=== PATIENT | female | born 1960 | race Caucasian/White ===

== ENCOUNTER 2017-09-18 07:52 | Day surgery (SDC) | payer BC ==
[~2017-09-18 07:52] MED LIST: Lactated Ringers 1,000 ML IV SCH; Lidocaine 1%/Sod Bicarbonate in NS 8.4% 1 ML Syringe IDERM PRN; Sodium Chloride 0.9% 10 ML Syringe FLUSH PRN
[2017-09-18] MEDS ORDERED: Lidocaine 1% with EPINEPHrine 1:100,000 20 ML MDV ONE (07:59)
[2017-09-18] MEDS ORDERED: Bupivacaine 0.5% 30 ML SDV ONE (07:59)
[2017-09-18] MEDS ORDERED: Sodium Chloride 0.9% 50 ML SDV ONE (08:30)
[2017-09-18] MEDS ORDERED: Scopolamine 1.5 MG Transdermal Patch TOP ONE (08:37)
[2017-09-18] MEDS ORDERED: Ondansetron 4 MG/2 ML SDV ONE (08:46)
[2017-09-18] MEDS ORDERED: ceFAZolin 1 GM Vial ONE (08:46)
[2017-09-18] MEDS ORDERED: Lactated Ringers 2,000 ML ONE (08:46)
[2017-09-18] MEDS ORDERED: Rocuronium 50 MG/5 ML Vial ONE ×2 (08:46→09:55)
[2017-09-18] MEDS ORDERED: Dexamethasone 4 MG/ML SDV ONE (08:46)
[2017-09-18] MEDS ORDERED: Propofol 200 MG/20 ML SDV ONE ×3 (08:46→10:01)
[2017-09-18] MEDS ORDERED: Midazolam 1 MG/ML 2 ML SDV ONE (08:47)
[2017-09-18] MEDS ORDERED: fentaNYL 250 MCG/5 ML SDV ONE (08:47)
[2017-09-18] MEDS ORDERED: Lidocaine 1% 4 ML ONE (08:47)
[2017-09-18] MEDS ORDERED: Ketamine 500 mg/10 ML MDV ONE (08:50)
[2017-09-18] MEDS ORDERED: Famotidine 20 MG/2 ML SDV ONE (08:53)
--- NOTE | 2017-09-18 09:11 | PCM.PREANE ---
Preanesthetic Assessment - Anesthesia/Transfusion/Family Hx Anesthesia History: Prior Anesthesia Reaction Type of Anesthesia Reaction: Excessive Nausea/Vomiting Family History of Anesthesia Reaction: No - Review of Systems General: No Symptoms Pulmonary: No Symptoms Cardiovascular: Chest Pain (History of Chest Pain. None for one year. EKG done and Normal this morning. ) Gastrointestinal: No Symptoms Neurological: Numbness (In her arms at times. Usually if she has fallen asleep in an ackward position. ) Other: Reports: Depression - Physical Assessment NPO Status Date: 09/18/17 NPO Status Time: 06:00 O2 Sat by Pulse Oximetry: 94 Respiratory Rate: 18 Vital Signs: Last Vital Signs Temp 36.6 C 09/18/17 07:58 Pulse 77 09/18/17 07:58 Resp 18 09/18/17 07:58 BP 134/76 09/18/17 07:58 Pulse Ox 94 L 09/18/17 07:58 Height: 1.57 m Weight: 96.3 kg ASA Class: 2 Mental Status: Alert & Oriented x3 Airway Class: Mallampati = 1 Dentition: Reports: Normal Dentition, Caries Thyro-Mental Finger Breadths: 3 Mouth Opening Finger Breadths: 3 ROM/Head Extension: Full Lungs: Clear to Auscultation, Normal Respiratory Effort Cardiovascular: Regular Rate, Regular Rhythm - Lab Values: Laboratory Last Values WBC 7.24 K/mm3 (3.98-10.04) 09/16/17 14:30 RBC 5.16 M/mm3 (3.98-5.22) 09/16/17 14:30 Hgb 15.1 gm/L (11.2-15.7) 09/16/17 14:30 Hct 44.8 % (34.1-44.9) 09/16/17 14:30 MCV 86.8 fl (79.4-94.8) 09/16/17 14:30 MCH 29.3 pg (25.6-32.2) 09/16/17 14:30 MCHC 33.7 g/dl (32.2-35.5) 09/16/17 14:30 RDW Std Deviation 41.1 fL (36.4-46.3) 09/16/17 14:30 Plt Count 232 K/mm3 (182-369) 09/16/17 14:30 MPV 10.3 fl (9.4-12.3) 09/16/17 14:30 Neut % (Auto) 55.2 % (34.0-71.1) 09/16/17 14:30 Lymph % (Auto) 33.0 % (19.3-51.7) 09/16/17 14:30 [place] % (Auto) 7.9 % (4.7-12.5) 09/16/17 14:30 Eos % (Auto) 3.2 (0.7-5.8) 09/16/17 14:30 Baso % (Auto) 0.6 % (0.1-1.2) 09/16/17 14:30 Neut # (Auto) 4.00 K/mm3 (1.56-6.13) 09/16/17 14:30 Lymph # (Auto) 2.39 K/mm3 (1.18-3.74) 09/16/17 14:30 [place] # (Auto) 0.57 K/mm3 (0.24-0.36) H 09/16/17 14:30 Eos # (Auto) 0.23 K/mm3 (0.04-0.36) 09/16/17 14:30 Baso # (Auto) 0.04 K/mm3 (0.01-0.08) 09/16/17 14:30 Sodium 140 mEq/L (136-145) 09/16/17 14:30 Potassium 3.9 mEq/L (3.5-5.1) 09/16/17 14:30 Chloride 103 mEq/L (98-107) 09/16/17 14:30 Carbon Dioxide 27 mEq/L (21-32) 09/16/17 14:30 Anion Gap 13.9 (5-15) 09/16/17 14:30 BUN 19 mg/dL (7-18) H 09/16/17 14:30 Creatinine 0.9 mg/dL (0.55-1.02) 09/16/17 14:30 Est Cr Clr Drug Dosing TNP 09/16/17 14:30 Estimated GFR (MDRD) > 60 mL/min (>60) 09/16/17 14:30 BUN/Creatinine Ratio 21.1 (14-18) H 09/16/17 14:30 Glucose 113 mg/dL (74-106) H 09/16/17 14:30 Calcium 9.2 mg/dL (8.5-10.1) 09/16/17 14:30 Total Bilirubin 0.6 mg/dL (0.2-1.0) 09/16/17 14:30 AST 28 U/L (15-37) 09/16/17 14:30 ALT 44 U/L (14-59) 09/16/17 14:30 Alkaline Phosphatase 67 U/L (46-116) 09/16/17 14:30 Total Protein 7.9 g/dl (6.4-8.2) 09/16/17 14:30 Albumin 4.3 g/dl (3.4-5.0) 09/16/17 14:30 Globulin 3.6 gm/dL 09/16/17 14:30 Albumin/Globulin Ratio 1.2 (1-2) 09/16/17 14:30 Urine Color Light yellow (Yellow) 09/16/17 14:30 Urine Appearance Clear (Clear) 09/16/17 14:30 Urine pH 6.0 (5.0-8.0) 09/16/17 14:30 Ur Specific [place] 1.020 (1.005-1.030) 09/16/17 14:30 Urine Protein Negative (Negative) 09/16/17 14:30 Urine Glucose (UA) Negative (Negative) 09/16/17 14:30 Urine Ketones Negative (Negative) 09/16/17 14:30 Urine Occult Blood Negative (Negative) 09/16/17 14:30 Urine Nitrite Negative (Negative) 09/16/17 14:30 Urine Bilirubin Negative (Negative) 09/16/17 14:30 Urine Urobilinogen 0.2 (0.2-1.0) 09/16/17 14:30 Ur Leukocyte Esterase Trace (Negative) H 09/16/17 14:30 Urine HCG, Qual Negative (NEGATIVE) 09/16/17 14:30 Blood Type A POSITIVE 09/16/17 14:30 Gel Antibody Screen Negative 09/16/17 14:30 - Allergies Allergies/Adverse Reactions: Allergies Allergy/AdvReac Type Severity Reaction Status Date / Time lisinopril Allergy Shortness Verified 09/18/17 08:45 of Breath - Acknowledgements Anesthesia Type Planned: General Anesthesia Pt an Appropriate Candidate for the Planned Anesthesia: Yes Alternatives and Risks of Anesthesia Discussed w Pt/Guardian: Yes Pt/Guardian Understands and Agrees with Anesthesia Plan: Yes Additional Comments: Spoke with Lo regarding her chest pain episodes. She states her primary care doctor felt a further workup was not warranted. She has not had an episode for one year. She does want to seek further testing. PreAnesthesia Questionnaire HEENT History: Reports: Allergic Rhinitis, Impaired Vision Other HEENT History: wears glasses, eyelid swelling Cardiovascular History: Reports: High Cholesterol, Hypertension Other Cardiovascular History: chest pain, edema Respiratory History: Reports: Sleep Apnea Other Respiratory History: upper respiratory infection Gastrointestinal History: Reports: Chronic Constipation Genitourinary History: Reports: STD LEHR [employer]ER History: Reports: Endometrial Ablation Other OB/BYN History: menstrual abnormality Other Musculoskeletal History: broken ankle, repaired with pins Neurological History: Reports: None Psychiatric History: Reports: Depression Endocrine/Metabolic History: Reports: Hypothyroidism, Vitamin D Deficiency Hematologic History: Reports: Anemia Other Hematologic History: vitamin D deficiency Immunologic History: Reports: None Oncologic (Cancer) History: Reports: None Dermatologic History: Reports: Other (See Below) Other Dermatologic History: herpes simplex and herpes zoster, swelling of eyelid , scalp lesion, hematoma, cellulitis, skin disorder - Past Surgical History Respiratory Surgical History: Reports: None GI Surgical History: Reports: None Female Surgical History: Reports: Section, Tubal Ligation Endocrine Surgical History: Reports: None Neurological Surgical History: Reports: None Oncologic Surgical History: Reports: None - SUBSTANCE USE Smoking Status *Q: Never Smoker Recreational Drug Use History: No - HOME MEDS Home Medications: Home Meds Cholecalciferol (Vitamin D3) [Vitamin D3] 4,000 unit PO DAILY 02/27/15 [History] DULoxetine HCl [Cymbalta] 60 mg PO DAILY 02/27/15 [History] Docusate Sodium [Colace] 100 mg PO DAILY 02/27/15 [History] Furosemide [Lasix] 20 mg PO DAILY 02/27/15 [History] Levothyroxine Sodium [Synthroid] 75 mcg PO DAILY 02/27/15 [History] Losartan Potassium 100 mg PO DAILY 02/27/15 [History] Ubidecarenone [Coq-10] 100 mg PO DAILY 02/27/15 [History] atorvaSTATin Calcium [Atorvastatin Calcium] 10 mg PO BEDTIME 02/27/15 [History] valACYclovir [Valtrex] 1,000 mg PO TID PRN 02/27/15 [History] Doxycycline Monohydrate 100 mg PO DAILY 09/17/17 [History] L Acidophil/B Lactis/B Longum [Florajen3] 460 mg PO DAILY 09/17/17 [History] Levocetirizine Dihydrochloride [Xyzal] 5 mg PO BEDTIME 09/17/17 [History] - CURRENT (IN HOUSE) MEDS Current Meds: Current Medications Lactated Ringer's (Ringers, Lactated) 1,000 mls @ 125 mls/hr IV ASDIRECTED MARCY Stop: 09/18/17 23:00 Last Admin: 09/18/17 08:25 Dose: 125 mls/hr Lidocaine/Sodium Bicarbonate (Buffered Lidocaine 1% In Ns 8.4%) 0.25 ml IDERM ONETIME PRN PRN Reason: Prior to IV Start Stop: 09/18/17 18:00 Sodium Chloride (Saline Flush) 10 ml FLUSH ASDIRECTED PRN PRN Reason: Keep Vein Open Stop: 09/18/17 18:00 Discontinued Medications Bupivacaine HCl (Marcaine 0.5%) Confirm Administered Dose 30 ml .ROUTE .STK-MED ONE Stop: 09/18/17 08:00 Cefazolin Sodium (Ancef) Confirm Administered Dose 2 gm .ROUTE .STK-MED ONE Stop: 09/18/17 08:47 Dexamethasone (Dexamethasone) Confirm Administered Dose 4 mg .ROUTE .STK-MED ONE Stop: 09/18/17 08:47 Famotidine (Pepcid) Confirm Administered Dose 20 mg .ROUTE .STK-MED ONE Stop: 09/18/17 08:54 Fentanyl (Sublimaze) Confirm Administered Dose 250 mcg .ROUTE .STK-MED ONE Stop: 09/18/17 08:48 Lactated Ringer's (Ringers, Lactated) Confirm Administered Dose 2,000 mls @ as directed .ROUTE .STK-MED ONE Stop: 09/18/17 08:47 Lidocaine HCl (Xylocaine-Mpf 1%) Confirm Administered Dose 4 mls @ as directed .ROUTE .STK-MED ONE Stop: 09/18/17 08:48 Ketamine HCl (Ketalar) Confirm Administered Dose 500 mg .ROUTE .STK-MED ONE Stop: 09/18/17 08:51 Lidocaine/Epinephrine (Xylocaine 1% With Epinephrine 1:100,000) Confirm Administered Dose 20 ml .ROUTE .STK-MED ONE Stop: 09/18/17 08:00 Midazolam HCl (Versed 1 Mg/Ml) Confirm Administered Dose 2 mg .ROUTE .STK-MED ONE Stop: 09/18/17 08:48 Ondansetron HCl (Zofran) Confirm Administered Dose 4 mg .ROUTE .STK-MED ONE Stop: 09/18/17 08:47 Propofol (Diprivan 20 Ml) Confirm Administered Dose 400 mg .ROUTE .STK-MED ONE Stop: 09/18/17 08:47 Propofol (Diprivan 20 Ml) Confirm Administered Dose 600 mg .ROUTE .STK-MED ONE Stop: 09/18/17 08:48 Rocuronium [place] (Zemuron) Confirm Administered Dose 50 mg .ROUTE .STK-MED ONE Stop: 09/18/17 08:47 Scopolamine (Transderm-Scop) 1.5 mg TOP ONETIME ONE Stop: 09/18/17 08:38 Last Admin: 09/18/17 08:45 Dose: 1.5 mg Sodium Chloride (Normal Saline) Confirm Administered Dose 50 ml .ROUTE .STK-MED ONE Stop: 09/18/17 08:31
[2017-09-18] MEDS ORDERED: Phenylephrine/Normal Saline 100 MCG/ML 10 ML Syringe ONE (09:51)
[2017-09-18] MEDS ORDERED: Neostigmine Methylsulfate 1 MG/ML 5 ML Syringe ONE (10:29)
[2017-09-18] MEDS ORDERED: HYDROmorphone 0.5 MG/0.5 ML Syringe IVPUSH PRN (10:57)
[2017-09-18] MEDS ORDERED: Acetaminophen/oxyCODONE 325-5 MG Tab PO PRN (10:57)
[2017-09-18] MEDS ORDERED: Haloperidol Lactate 5 MG/ML SDV IVPUSH PRN (10:57)
[2017-09-18] MEDS ORDERED: fentaNYL 100 MCG/2 ML SDV IVPUSH PRN (10:57)
[2017-09-18] MEDS ORDERED: Ondansetron 4 MG/2 ML SDV IVPUSH PRN (10:57)
[2017-09-18] MEDS ORDERED: diphenhydrAMINE 50 MG/ML SDV IVPUSH PRN (10:57)
--- NOTE | 2017-09-18 10:57 | PCM.POSTAN ---
POST ANESTHESIA ASSESSMENT - MENTAL STATUS Mental Status: Alert, Oriented - VITAL SIGNS Pulse Rate: 68 SaO2: 98 Resp Rate: 7 Blood Pressure: 102/56 Temperature: 36.2 C - RESPIRATORY Respiratory Status: Respiratory Rate WNL, Airway Patent, O2 Saturation Stable, Supplemental Oxygen - CARDIOVASCULAR CV Status: Pulse Rate WNL, Blood Pressure Stable - GASTROINTESTINAL GI Status: No Symptoms - PAIN Pain Score: 0 - POST OP HYDRATION Hydration Status: Adequate & Stable
--- NOTE | 2017-09-18 11:04 | PCM.OPNOTE ---
- General Post-Op/Procedure Note Date of Surgery/Procedure: 09/18/17 Operative Procedure(s): Laparoscopic-assisted vaginal hysterectomy with bilateral salpingo-oophorectomy. Findings: Uterus was small, patient has evidence of tubal ligation. Adhesions noted. Ovaries were small and normal in appearance for postmenopausal female. Pre Op Diagnosis: 1. Postmenopausal uterine bleeding Post-Op Diagnosis: Same Anesthesia Technique: General ET Tube Other Anesthesia Type: Lidocaine quarter percent with [id number] mL. Marcaine 0.5%10 mL Primary Surgeon: Ben Marrero Secondary Surgeon: Avila Block Anesthesia Provider: Christa Telles Reason Hop Picker Was Necessary: Retraction, assistance, patient safety, quality of care Role of Hop Picker: Retraction, assistance Pathology: Uterus, tubes and ovaries as one specimen Fluid Replacement, Intraop: 2,000 Output, Urine Amount: 200 EBL in mLs: 10 Drain/Tube Comments:: Indwelling catheter removed Complications: None Condition: Good Free Text/Narrative:: Surgery duration: 45 minutes The patient was taken to the operating room placed in supine position on the operating table. She received 2 g of Ancef preoperatively for infection prophylaxis. She had signed consent previously. After adequate anesthesia patient was placed in a dorsal lithotomy position. It should be noted she had sequential compression stockings in place for DVT prophylaxis. A latex free indwelling bladder catheter was placed. This was done after adequate prepping and draping. The patient was placed in supine position and four laparoscopic port sites were developed. Marcaine 0.5% approximately 3-5 mL was injected at each site. Varies needle was placed and pneumoperitoneum was achieved with 3 L of CO2. Infraumbilical, suprapubic and 2 lateral port sites were developed. Under laparoscopic guidance the upper portion of the hysterectomy was performed. The right infundibulopelvic ligament was elevated and crossclamped using the endoseal computerized cautery device. Ovaries were removed per patient desire with this technique. The round ligament was taken down to the broad ligament. At this time attention was turned to the left side and the left infundibulopelvic ligament and the triple ligament were then taken down in a similar fashion. Broad ligament was taken down to the area of the uterine vasculature. Uterine vasculature was developed in the usual fashion using the cautery system. Both uterine arteries were identified and developed. Vaginal approach was then undertaken. The patient was placed in the dorsal lithotomy position and a weighted speculum was placed in the vagina. The cervix was injected with lidocaine quarter percent with epinephrine 20 mL total. A full circumference incision was made through the epithelium around the cervix. Posterior cul-de-sac was entered without problems. The left uterosacral ligament and then the right uterosacral were taken down using the Enseal vessel closure system. The cardinal ligament and what remained of the uterine vascular vessels and cervical branches of the vessels were managed with the Enseal vessel closure system on each side. Anterior cul-de-sac was then entered and the remaining portion of broad ligament on the right side and a small portion of broad ligament remaining on the left side were then developed in the usual fashion. Uterus was then removed. At this point the uterus was completely removed and sent as specimen. The vagina was closed with a running locked suture of 0 Monocryl. Hemostasis was confirmed this time and no bleeding was noted. Laparoscopy was then performed to ensure hemostasis. Pneumoperitoneum was reestablished and the laparoscope was placed. The pelvis was found to be hemostatically intact. There was no evidence of any bowel adhesion to the vaginal cuff area noted. The sleeves were removed under direct visualization and the upper sleeve was removed after reversal of the pneumoperitoneum. Each of these sites were closed with a single interrupted suture of 3-0 Monocryl. They were further approximated with Dermabond skin glue. At this point the patient was awakened from general endotracheal anesthesia. The Sen catheter had been removed by this time. She is discharged from the operating room in good condition.
--- NOTE | 2017-09-18 11:42 | PCM48HPAN ---
Post Anesthesia Note - EVALUATION WITHIN 48HRS OF ANESTHETIC Vital Signs in Normal Range: Yes Patient Participated in Evaluation: Yes Respiratory Function Stable: Yes Airway Patent: Yes Cardiovascular Function Stable: Yes Hydration Status Stable: Yes Pain Control Satisfactory: Yes Nausea and Vomiting Control Satisfactory: Yes Mental Status Recovered: Yes
[2017-09-18] MEDS ORDERED: Ketorolac 30 MG/ML SDV IVPUSH ONE (12:00)
[2017-09-18 14:34] VITALS: BP 120/70
== END 2017-09-18 14:20 | disposition home or self-care (01) ==
LOC: JD.SDS 07:52
PROVIDERS: ATTEND Obstetrics & Gynecology
DX: N80.0 Endometriosis of uterus (principal); N88.8 Other specified noninflammatory disorders of cervix uteri; N83.312 Acquired atrophy of left ovary; N83.292 Other ovarian cyst, left side; N83.291 Other ovarian cyst, right side; N73.6 Female pelvic peritoneal adhesions (postinfective); I10 Essential (primary) hypertension; E78.5 Hyperlipidemia, unspecified; E03.9 Hypothyroidism, unspecified; F32.9 Major depressive disorder, single episode, unspecified; G47.33 Obstructive sleep apnea (adult) (pediatric); E55.9 Vitamin D deficiency, unspecified; Z88.8 Allergy status to other drugs, medicaments and biological substances; Z79.899 Other long term (current) drug therapy
CPT/HCPCS: 36415; 58552; 80053; 81003; 81025; 85025; 86850; 86900; 86901; 93005; A9270; J0690; J1100; J1885; J2001; J2250; J2405; J2710; J3010; J7120; 00944; J2704

== ENCOUNTER 2019-01-27 20:38 | Emergency (ER) | payer BC ==
[2019-01-27 20:43] VITALS: BP 144/95; PULSE 82
[2019-01-27] MEDS ORDERED: Sodium Chloride 0.9% 10 ML Syringe FLUSH PRN (20:49)
[2019-01-27] MEDS ORDERED: Aspirin 81 MG Tab.Chew PO ONE (20:49)
--- NOTE | 2019-01-27 21:08 | EDM.PDOC ---
ED HPI GENERAL MEDICAL PROBLEM - General Chief Complaint: Chest Pain Stated Complaint: [facility] Time Seen by Provider: 01/27/19 20:45 Source of Information: Reports: Patient History Limitations: Reports: No Limitations - History of Present Illness INITIAL COMMENTS - FREE TEXT/NARRATIVE: The patient presents by [facility] for a nonSTEMI and chest pain. She said the pressure started today with some nausea. The pain was no that bad. She went to [facility] and her EKG looked good. Labs were sent off and her troponin was elevated at 0.329. Gisela Beck NP at the [facility] called the patient and myself. An ambulance was called to bring her in. She came in by [facility]. She is pain free now. Her BP was a little high in the clinic. She has no history of heart attack. She does have a history of hypertension and hypercholesterolemia for which she is taking medications. She does not smoke. She does have a family history of heart disease. She has no history of PE or DVT. She has no fever, chills, cough, congestion, shortness of breath, abdominal pain or vomiting. Onset: Gradual Duration: Hour(s): Location: Reports: Chest Quality: Reports: Pressure Severity: Mild (Gone now) Improves with: Reports: None Worsens with: Reports: None Associated Symptoms: Reports: Chest Pain. Denies: Cough, Fever/Chills, Headaches, Nausea/Vomiting, Shortness of Breath Treatments WELFARE ANALYST: Reports: IV/IO, Other (see below) Other Treatments WELFARE ANALYST: dilaudid and saline - Related Data Allergies Allergy/AdvReac Type Severity Reaction Status Date / Time lisinopril Allergy Shortness Verified 01/27/19 20:43 of Breath Home Meds: Home Meds DULoxetine HCl [Cymbalta] 60 mg PO DAILY 02/27/15 [History] Levothyroxine Sodium [Synthroid] 75 mcg PO DAILY 02/27/15 [History] Losartan Potassium 100 mg PO DAILY 02/27/15 [History] Ubidecarenone [Coq-10] 100 mg PO DAILY 02/27/15 [History] atorvaSTATin Calcium [Atorvastatin Calcium] 10 mg PO BEDTIME 02/27/15 [History] L Acidophil/B Lactis/B Longum [Florajen3] 460 mg PO DAILY 09/17/17 [History] Ibuprofen 600 mg PO Q4H PRN #30 tablet 09/18/17 [Rx] Past Medical History HEENT History: Reports: Allergic Rhinitis, Impaired Vision Other HEENT History: wears glasses, eyelid swelling Cardiovascular History: Reports: High Cholesterol, Hypertension Other Cardiovascular History: chest pain, edema Respiratory History: Reports: Sleep Apnea Other Respiratory History: upper respiratory infection Gastrointestinal History: Reports: Chronic Constipation Genitourinary History: Reports: STD FIELD ASSOCIATE History: Reports: Endometrial Ablation Other FIELD ASSOCIATE History: menstrual abnormality Other Musculoskeletal History: broken ankle, repaired with pins Neurological History: Reports: None Psychiatric History: Reports: Depression Endocrine/Metabolic History: Reports: Hypothyroidism, Vitamin D Deficiency Hematologic History: Reports: Anemia Other Hematologic History: vitamin D deficiency Immunologic History: Reports: None Oncologic (Cancer) History: Reports: None Dermatologic History: Reports: Other (See Below) Other Dermatologic History: herpes simplex and herpes zoster, swelling of eyelid , scalp lesion, hematoma, cellulitis, skin disorder - Past Surgical History Respiratory Surgical History: Reports: None GI Surgical History: Reports: None Female Surgical History: Reports: Section, Tubal Ligation Endocrine Surgical History: Reports: None Neurological Surgical History: Reports: None Oncologic Surgical History: Reports: None Social & Family History - Tobacco Use Smoking Status *Q: Never Smoker - Caffeine Use Caffeine Use: Reports: Coffee, Soda ED ROS GENERAL - Review of Systems Review Of Systems: See Below Constitutional: Reports: No Symptoms HEENT: Reports: No Symptoms Respiratory: Reports: No Symptoms Cardiovascular: Reports: Chest Pain Endocrine: Reports: No Symptoms GI/Abdominal: Reports: Nausea. Denies: Abdominal Pain, Diarrhea, Vomiting : Reports: No Symptoms Musculoskeletal: Reports: No Symptoms Skin: Reports: No Symptoms ED EXAM, GENERAL - Physical Exam Exam: See Below Exam Limited By: No Limitations General Appearance: Alert, WD/WN Ears: Normal External Exam Nose: Normal Inspection Head: Atraumatic, Normocephalic Neck: Normal Inspection Respiratory/Chest: No Respiratory Distress, Lungs Clear, Normal Breath Sounds Cardiovascular: Regular Rate, Rhythm, No Edema, No Murmur GI/Abdominal: Soft, Non-Tender, No Organomegaly, No Mass Back Exam: Normal Inspection Extremities: Normal Inspection Neurological: Alert, Oriented, No Motor/Sensory Deficits EKG INTERPRETATION EKG Date: 01/27/19 Time: 20:53 Rhythm: NSR Rate (Beats/Min): 80 Pillager: Normal P-Wave: Present QRS: Normal ST-T: Normal QT: Normal Course - Vital Signs Last Recorded V/S: Last Vital Signs Temp 97.4 F 01/27/19 20:41 Pulse 82 01/27/19 20:41 Resp 16 01/27/19 20:41 BP 144/95 H 01/27/19 20:41 Pulse Ox 90 L 01/27/19 20:41 - Orders/Labs/Meds Orders: Active Orders 24 hr Category Date Time Status Cardiac Monitoring [RC] . DIRECTED Care 01/27/19 20:49 Active EKG 12 Lead [EKG Documentation Completion] [RC] STAT Care 01/27/19 20:47 Active Oxygen Therapy [RC] PRN Care 01/27/19 20:49 Active Peripheral IV Care [RC] . DIRECTED Care 01/27/19 20:53 Active Chest wo Cont [CT] Stat Exams 01/27/19 21:45 Ordered CBC W/O DIFF,HEMOGRAM [HEME] MOTH@0700 Lab 01/31/19 07:00 Ordered CBC W/O DIFF,HEMOGRAM [HEME] MOTH@0700 Lab 02/03/19 07:00 Ordered CBC W/O DIFF,HEMOGRAM [HEME] MOTH@0700 Lab 02/07/19 07:00 Ordered CBC W/O DIFF,HEMOGRAM [HEME] MOTH@0700 Lab 02/10/19 07:00 Ordered CBC W/O DIFF,HEMOGRAM [HEME] MOTH@0700 Lab 02/14/19 07:00 Ordered CBC W/O DIFF,HEMOGRAM [HEME] MOTH@0700 Lab 02/17/19 07:00 Ordered Heparin Sodium/D5W [Heparin 25,000 Units in D5W 500 ML] Med 01/27/19 21:30 Active 25,000 units in 500 ml IV TITRATE Sodium Chloride 0.9% [Saline Flush] Med 01/27/19 20:49 Active 10 ml FLUSH ASDIRECTED PRN Peripheral IV Insertion Adult [OM.PC] Stat Oth 01/27/19 20:49 Ordered Medication Orders Heparin Sodium/Dextrose (Heparin 25,000 Units In D5w 500 Ml) 25,000 units in 500 mls @ 19.051 mls/hr IV TITRATE MARCY; Protocol Last Admin: 01/27/19 21:24 Dose: 10 units/kg/hr, 19.051 mls/hr Sodium Chloride (Saline Flush) 10 ml FLUSH ASDIRECTED PRN PRN Reason: Keep Vein Open Last Admin: 01/27/19 21:25 Dose: 10 ml Labs: Laboratory Tests 01/27/19 01/27/19 Range/Units 21:15 21:15 WBC 8.78 (3.98-10.04) K/mm3 RBC 4.62 (3.98-5.22) M/mm3 Hgb 13.4 (11.2-15.7) gm/dl Hct 40.2 (34.1-44.9) % MCV 87.0 (79.4-94.8) fl MCH 29.0 (25.6-32.2) pg MCHC 33.3 (32.2-35.5) g/dl RDW Std Deviation 40.4 (36.4-46.3) fL Plt Count 277 (182-369) K/mm3 MPV 10.4 (9.4-12.3) fl Neut % (Auto) 55.1 (34.0-71.1) % Lymph % (Auto) 31.3 (19.3-51.7) % [place] % (Auto) 8.8 (4.7-12.5) % Eos % (Auto) 4.0 (0.7-5.8) Baso % (Auto) 0.6 (0.1-1.2) % Neut # (Auto) 4.84 (1.56-6.13) K/mm3 Lymph # (Auto) 2.75 (1.18-3.74) K/mm3 [place] # (Auto) 0.77 H (0.24-0.36) K/mm3 Eos # (Auto) 0.35 (0.04-0.36) K/mm3 Baso # (Auto) 0.05 (0.01-0.08) K/mm3 Sodium 142 (136-145) mEq/L Potassium 4.0 (3.5-5.1) mEq/L Chloride 105 (98-107) mEq/L Carbon Dioxide 30 (21-32) mEq/L Anion Gap 11.0 (5-15) BUN 17 (7-18) mg/dL Creatinine 0.9 (0.55-1.02) mg/dL Est Cr Clr Drug Dosing 55.20 mL/min Estimated GFR (MDRD) > 60 (>60) mL/min BUN/Creatinine Ratio 18.9 H (14-18) Glucose 107 H (74-106) mg/dL Calcium 9.0 (8.5-10.1) mg/dL Total Bilirubin 0.3 (0.2-1.0) mg/dL AST 28 (15-37) U/L ALT 31 (14-59) U/L Alkaline Phosphatase 65 (46-116) U/L Troponin I 0.464 H* (0.00-0.056) ng/mL Total Protein 7.4 (6.4-8.2) g/dl Albumin 3.9 (3.4-5.0) g/dl Globulin 3.5 gm/dL Albumin/Globulin Ratio 1.1 (1-2) Meds: Medications Generic Name Dose Route Start Last Admin Trade Name Freq PRN Reason Stop Dose Admin Heparin Sodium/Dextrose 25,000 units in 500 mls @ 19.051 mls/hr 01/27/19 21: 30 01/27/19 21:24 Heparin 25,000 Units In D5w 500 Ml IV 10 units/kg/hr TITRATE MARCY 19.051 mls/hr Administration Protocol 10 UNITS/KG/HR Sodium Chloride 10 ml 01/27/19 20:49 01/27/19 21:25 Saline Flush FLUSH 10 ml ASDIRECTED PRN Administration Keep Vein Open Discontinued Medications Generic Name Dose Route Start Last Admin Trade Name Freq PRN Reason Stop Dose Admin Aspirin 324 mg 01/27/19 20:49 01/27/19 21:25 Aspirin PO 01/27/19 20:50 324 mg ONETIME ONE Administration Heparin Sodium (Porcine) 5,000 units 01/27/19 21:17 01/27/19 21:25 Heparin Sodium IVPUSH 01/27/19 21:18 5,000 units ONETIME ONE Administration - Re-Assessments/Exams Free Text/Narrative Re-Assessment/Exam: 01/27/19 21:16 I ordered an IV saline lock, EKG, CXR, labs, aspirin, heparin bolus and heparin drip. She is having a nonSTEMI. She is pain free now. Her EKG shows a NSR with no acute changes. 01/27/19 21:18 I called [facility] in [place] and talked with Dr Hernandez the hospitalist president financial institution and she accepted the patient. 01/27/19 22:13 Her CBC and CMP look good. Her troponin has gone up more to 0.464. She still does not have much pain. Dr Freedman our radiologist read the CXR as equivocal nodule within the left upper chest. Chest CT suggested to completely exclude this possibility. Chest CT can be performed without contrast. We are still waiting on the ambulance so I have ordered a chest CT. Departure - Departure Time of Disposition: 22:20 Disposition: DC/Tfer to Acute Hospital 02 Reason for Transfer *Q: Other Condition: Fair Clinical Impression: Non-STEMI (non-ST elevated myocardial infarction) Referrals: PCP,Unknown [Primary Care Provider] - Forms: ED Department Discharge - My Orders Last 24 Hours: My Active Orders 01/27/19 20:47 EKG 12 Lead [EKG Documentation Completion] [RC] STAT 01/27/19 20:49 Cardiac Monitoring [RC] . DIRECTED Oxygen Therapy [RC] PRN Sodium Chloride 0.9% [Saline Flush] 10 ml FLUSH ASDIRECTED PRN Peripheral IV Insertion Adult [OM.PC] Stat 01/27/19 20:53 Peripheral IV Care [RC] . DIRECTED 01/27/19 21:30 Heparin Sodium/D5W [Heparin 25,000 Units in D5W 500 ML] 25,000 units in 500 ml IV TITRATE 01/27/19 21:45 Chest wo Cont [CT] Stat 01/31/19 07:00 CBC W/O DIFF,HEMOGRAM [HEME] MOTH@0700 02/03/19 07:00 CBC W/O DIFF,HEMOGRAM [HEME] MOTH@0700 02/07/19 07:00 CBC W/O DIFF,HEMOGRAM [HEME] MOTH@0700 02/10/19 07:00 CBC W/O DIFF,HEMOGRAM [HEME] MOTH@0700 02/14/19 07:00 CBC W/O DIFF,HEMOGRAM [HEME] MOTH@0700 02/17/19 07:00 CBC W/O DIFF,HEMOGRAM [HEME] MOTH@0700 - Assessment/Plan Last 24 Hours: My Active Orders 01/27/19 20:47 EKG 12 Lead [EKG Documentation Completion] [RC] STAT 01/27/19 20:49 Cardiac Monitoring [RC] . DIRECTED Oxygen Therapy [RC] PRN Sodium Chloride 0.9% [Saline Flush] 10 ml FLUSH ASDIRECTED PRN Peripheral IV Insertion Adult [OM.PC] Stat 01/27/19 20:53 Peripheral IV Care [RC] . DIRECTED 01/27/19 21:30 Heparin Sodium/D5W [Heparin 25,000 Units in D5W 500 ML] 25,000 units in 500 ml IV TITRATE 01/27/19 21:45 Chest wo Cont [CT] Stat 01/31/19 07:00 CBC W/O DIFF,HEMOGRAM [HEME] MOTH@0700 02/03/19 07:00 CBC W/O DIFF,HEMOGRAM [HEME] MOTH@0700 02/07/19 07:00 CBC W/O DIFF,HEMOGRAM [HEME] MOTH@0700 02/10/19 07:00 CBC W/O DIFF,HEMOGRAM [HEME] MOTH@0700 02/14/19 07:00 CBC W/O DIFF,HEMOGRAM [HEME] MOTH@0700 02/17/19 07:00 CBC W/O DIFF,HEMOGRAM [HEME] MOTH@07
[2019-01-27] MEDS ORDERED: Heparin Sodium 5,000 Units/ML Vial IVPUSH ONE (21:17)
[2019-01-27] MEDS ORDERED: Heparin Sodium/D5W 25,000 UNITS/500 ML BAG IV SCH (21:30)
--- NOTE | 2019-01-27 21:39 | CR ---
Chest: Portable view of the chest was obtained. Comparison: No prior chest x-ray is available. Heart size and mediastinum are within normal limits. Equivocal nodule within the left upper chest is seen. Lungs otherwise are clear. Bony structures are unremarkable. Impression: 1. Equivocal nodule within the left upper chest. Chest CT suggested to completely exclude this possibility. Chest CT can be performed without contrast. 2. Nothing acute is otherwise seen. Diagnostic code #9
--- NOTE | 2019-01-28 07:31 | CT ---
CT chest Technique: Multiple axial sections through the chest were obtained. Intravenous contrast was not utilized. Comparison: Prior chest x-ray performed earlier on the same day (8:53 PM). Findings: Mediastinum and hilar regions are unremarkable. No axillary adenopathy is seen. No pericardial fluid is seen. Visualized noncontrast upper abdominal structures appear within normal limits. No pulmonary nodule is noted as suggested on the chest x-ray within the upper left lung. There is a minimal area of pleural thickening seen posteriorly within the right upper lung which most likely correlates to the opacity on chest x-ray. Lungs show scattered areas of scarring. No definite acute parenchymal change is suggested. There is one area of ground-glass appearance within the right paraspinal region which could represent small area of pneumonia or additional scarring. Bone window settings were reviewed which showed no acute osseous abnormality. Impression: 1. No pulmonary nodule is noted as suggested on chest x-ray within the left upper lung. This finding is felt to correlate to a small area of pleural thickening. 2. Scattered areas of scarring within both lungs. Small area of ground-glass appearance within the right lung base. Differential includes smaller pneumonia as well as additional area of scarring if patient has no infectious symptoms. Diagnostic code #3 I agree with preliminary report from [facility], finalized on 01/27/19, 11:45 PM Central Time
== END 2019-01-27 22:25 ==
LOC: JD.ED 20:38
DX: I21.4 Non-ST elevation (NSTEMI) myocardial infarction (principal); E78.00 Pure hypercholesterolemia, unspecified; I10 Essential (primary) hypertension; F32.9 Major depressive disorder, single episode, unspecified; E03.9 Hypothyroidism, unspecified; Z88.8 Allergy status to other drugs, medicaments and biological substances; Z79.899 Other long term (current) drug therapy; Z79.890 Hormone replacement therapy
CPT/HCPCS: 36415; 71045; 71045-26; 71250; 71250-26; 80053; 84484; 85025; 93005; 96365; 96375; 99285-25; A9270-GY; J1644